=== PATIENT | female | born 1990 | race Caucasian/White ===

== ENCOUNTER 2024-08-17 19:02 | Emergency (ER) | payer BC ==
[~2024-08-17] VITALS: Ht 167.6 cm; Wt 64.8 kg
[2024-08-17 19:14] VITALS: TEMP 97.5
[2024-08-17 19:34] LABS: BASOPHILS # (AUTO) 0.1 X10'3 (0-0.2); BASOPHILS % (AUTO) 0.7 % (0-1); EOSINOPHILS # (AUTO) 0.7 X10'3 (0-0.9); EOSINOPHILS % (AUTO) 8.2 % (0-6); HEMATOCRIT 41.1 % (35.0-45.0); LYMPHOCYTES # (AUTO) 2.4 X10'3 (1.1-4.8); MEAN CORPUSCULAR HEMOGLOBIN 31.8 PG (27.0-31.0); MEAN CORPUSCULAR HGB CONC 34.1 g/dL (33.0-36.5); MEAN CORPUSCULAR VOLUME 93.2 FL (78-98); MEAN PLATELET VOLUME 8.4 FL (7.4-10.4); MONOCYTES # (AUTO) 0.8 X10'3 (0-0.9); NEUTROPHILS # (AUTO) 4.3 X10'3 (1.8-7.7); NEUTROPHILS % (AUTO) 52.1 % (42-75); PLATELET COUNT 209 X10'3 (140-440); RED BLOOD COUNT 4.41 X10'6 (4.20-5.60); RED CELL DISTRIBUTION WIDTH 13.3 % (11.5-14.5); WHITE BLOOD COUNT 8.2 X10'3 (4.5-11.0)
[2024-08-17 19:36] LABS: BILIRUBIN,URINE NEGATIVE (Neg); CLARITY,URINE SLIGHTLY CLOUDY (Clear); COLOR,URINE YELLOW (Yellow); GLUCOSE, URINE NEGATIVE (Neg); KETONES,URINE NEGATIVE (Neg); LEUKOCYTE ESTERASE ,URINE TRACE (Neg); NITRITES, URINE NEGATIVE (Neg); OCCULT BLOOD,URINE TRACE-INTACT (Neg); PROTEIN,URINE NEGATIVE (Neg); URINE HCG NEGATIVE (NEG); UROBILINOGEN,URINE 0.2 E.U/dL (0.2-1.0)
[2024-08-17 19:38] LABS: UA COLLECTION TYPE CLN CATCH MIDSTREAM
[2024-08-17 19:44] LABS: BACTERIA,URINE 3+ /HPF (Neg); SQUAMOUS EPITHELIAL CELL,UR MANY /LPF (FEW); WBC,URINE 50-100 /HPF (0-4)
[2024-08-17 19:49] LABS: ALANINE AMINOTRANSFERASE 17 U/L (12-78); ALBUMIN 3.7 G/DL (3.4-5.0); ALBUMIN/GLOBULIN RATIO 1.1 (1.1-1.5); ALKALINE PHOSPHATASE 76 IU/L (46-116); ANION GAP 6 (8-16); ASPARTATE AMINO TRANSFERASE 15 U/L (10-37); BILIRUBIN,TOTAL 0.4 MG/DL (0.1-1.0); BLOOD UREA NITROGEN 17 MG/DL (7-18); BUN/CREATININE RATIO 14.3 (10.0-20.0); CALCIUM 8.5 MG/DL (8.5-10.1); CHLORIDE 107 MMOL/L (99-107); CREATININE 1.19 MG/DL (0.40-0.90); GLUCOSE 94 MG/DL (70-104); LIPASE 45 U/L (16-77); POTASSIUM 3.9 MMOL/L (3.5-5.1); SODIUM 143 MMOL/L (135-145); TOTAL CARBON DIOXIDE 29.7 MMOL/L (24-32); TOTAL PROTEIN 7.1 G/DL (6.4-8.2); eCRCL 62 ML/MIN; eGFR 52 ML/MIN
--- NOTE | 2024-08-17 20:26 | Physician Documentation ---
History of Present Illness ~ Chief Complaint: Urinary Symptoms Stated Complaint: UTI Time Seen by MD: 19:43 Mode of Arrival: POV HPI Patient is seen today with complaints of urinary tract infection like symptoms. Patient states she was just recently treated for urinary tract infection and states that her symptoms got better for a while but have now returned and she feels a possibly never fully went away or resolve. Patient states she was treated for UTI about two months ago. Patient has no other concern or complaint of time. Patient states she has a problem with holding her urine and not staying well hydrated. She denies any current fever or flank pain. Medication Reconciliation Allergies: Coded Allergies: No Known Allergies (Unverified , 08/17/24) Review of Systems Constitutional: Denies: chills, fever, weakness Eyes: Denies: pain, blurred vision ENT: Denies: ear pain, nose pain, throat pain, mouth pain Respiratory: Denies: cough, shortness of breath Cardiovascular: Denies: chest pain, palpitations Gastrointestinal: Denies: abdominal pain, nausea, vomiting Genitourinary: Denies: burning, dysuria Female Genitalia: Denies: vaginal discharge, pelvic pain Neurological: Denies: headache, dizziness Musculoskeletal: Denies: pain, swelling Integumentary: Denies: rash, lesions Allergic/Immunologic: Denies: hives, itching Hematologic/Lymphatic: Denies: no symptoms reported Psychiatric: Denies: depression, anxiety Physical Exam Vital Signs: Temperature: 97.5, Source: Temporal, Heart Rate: 61, Respiratory Rate: 16, BP: 103/46, Pulse Oximetry: 98, Weight: 64.850 Oxygen Flow Rate: 0 Physical Exam General: Awake and Alert, no acute distress. HEENT: Conjunctiva pink, Sclera clear, Mucus Membranes moist. Neck: Supple without masses and tenderness. Resp: Unlabored. Lungs clear to auscultation bilaterally. Heart: Regular Rate and rhythm, normal S1 and S2 without murmur, rub or gallop. Abdomen: Abdomen is soft, nondistended, patient has mild discomfort in his suprapubic area without any significant tenderness in any quadrant. There was no rebound tenderness and no guarding. Patient does not have any CVA tenderness bilaterally. Extremities: No cyanosis,clubbing or edema. Skin: Warm and Dry. Progress Results/Orders Results/Orders Vital Signs 08/17/24 08/17/24 19:14 19:43 Temp 97.5 Pulse 61 Resp 16 16 B/P (MAP) 103/46 Pulse Ox 98 O2 Flow Rate 0 Laboratory Tests Test 08/17/24 19:27 08/17/24 19:32 White Blood Count 8.2 Red Blood Count 4.41 Hemoglobin 14.0 Hematocrit 41.1 Mean Corpuscular Volume 93.2 Mean Corpuscular Hemoglobin 31.8 H Mean Corpuscular Hemoglobin Concent 34.1 Red Cell Distribution Width 13.3 Platelet Count 209 Mean Platelet Volume 8.4 Neutrophils (%) (Auto) 52.1 Lymphocytes (%) (Auto) 29.0 Monocytes (%) (Auto) 10.0 Eosinophils (%) (Auto) 8.2 H Basophils (%) (Auto) 0.7 Neutrophils # (Auto) 4.3 Lymphocytes # (Auto) 2.4 Monocytes # (Auto) 0.8 Eosinophils # (Auto) 0.7 Basophils # (Auto) 0.1 CBC Comment Sodium Level 143 Potassium Level 3.9 Chloride Level 107 Carbon Dioxide Level 29.7 Anion Gap 6 L Blood Urea Nitrogen 17 Creatinine 1.19 H Estimated GFR/1.73 m2 52 BUN/Creatinine Ratio 14.3 Glucose Level 94 Calcium Level 8.5 Total Bilirubin 0.4 Aspartate Amino Transf (AST/SGOT) 15 Alanine Aminotransferase (ALT/SGPT) 17 Alkaline Phosphatase 76 Total Protein 7.1 Albumin 3.7 Globulin 3.4 Albumin/Globulin Ratio 1.1 Lipase 45 Chemistry Comments Urine Specimen Description Cln catch midstream Urine Color Yellow Urine Clarity Slightly cloudy Urine pH 6.0 Urine Specific [place] >=1.030 Urine Protein Negative Urine Glucose (UA) Negative Urine Ketones Negative Urine Occult Blood Trace-intact Urine Nitrite Negative Urine Bilirubin Negative Urine Urobilinogen 0.2 Urine Leukocyte Esterase Trace H Urine RBC 3-10 Urine WBC 50-100 H Urine Squamous Epithelial Cells Many Urine Bacteria 3+ Urine Culture Indicated Rejected for culture Volume Urine Centrifuged 10 ml Urine HCG, Qualitative Negative Urine Comment Medical Decision Making Findings Patient is seen today with complaints of urinary tract infection like symptoms. Patient states she was just recently treated for urinary tract infection and states that her symptoms got better for a while but have now returned and she feels a possibly never fully went away or resolve. Patient states she was treated for UTI about two months ago. Patient has no other concern or complaint of time. Patient states she has a problem with holding her urine and not staying well hydrated. She denies any current fever or flank pain. Patient given Rocephin injection IM 1 g in the ED tonight. Prescription of nitrofurantoin/Macrobid sent to patient's pharmacy and patient will start that tomorrow one capsule or tablet twice a day. Patient will follow up with primary care in 2-5 days if no better as needed sooner. Return to ED with any worsening , concerning or changing symptoms. Departure Disposition: 01 HOME / SELF CARE / HOMELESS Impression: Primary Impression: Acute urinary tract infection Condition: Stable Discharge Instructions: Urinary Tract Infection, Adult Additional Instructions: Patient given Rocephin injection IM 1 g in the ED tonight. Prescription of nitrofurantoin/Macrobid sent to patient's pharmacy and patient will start that tomorrow one capsule or tablet twice a day. Patient will follow up with primary care in 2-5 days if no better as needed sooner. Return to ED with any worsening , concerning or changing symptoms. Referrals: NO PRIMARY CARE PROVIDER (PCP) Prescriptions Nitrofurantoin Monohyd/M-Cryst (Macrobid 100 mg Capsule) 100 Mg Capsule 1 CAP PO Q12H for 5 Days, #10 CAP 0 Refills Prov: KIMBERLY BRADSHAW 08/17/24 Signature Scribe Signature: No scribe Attestation: No scribKIMBERLY Jensen Aug 17, 2024 20:26
[2024-08-17] MEDS ORDERED: NITR100C6 PO (20:30)
[2024-08-17] MEDS: CefTRIAXone 1000mg IM Kit (w/lidocaine diluent) IM STA (20:33)
[2024-08-17 20:41] VITALS: BP 110/48; PULSE 60; RESP 18; O2SAT 99
== END 2024-08-17 20:42 | disposition home or self-care (01) ==
LOC: ER 19:03
DX: N39.0 Urinary tract infection, site not specified (principal)
CPT/HCPCS: 36415; 80053; 81001; 81025; 83690; 85025; 96372; 99283; J0696

== ENCOUNTER 2024-09-16 20:02 | Emergency (ER) | payer BC ==
[~2024-09-16] VITALS: Ht 167.6 cm; Wt 65.4 kg
[~2024-09-16 20:02] MED LIST: NITR100C6 PO
[2024-09-16 21:17] VITALS: BP 112/62; PULSE 48; TEMP 98.4; O2SAT 98
[2024-09-16 21:40] VITALS: RESP 16
--- NOTE | 2024-09-16 21:56 | Physician Documentation ---
History of Present Illness ~ Chief Complaint: Vaginal Bleeding Stated Complaint: COMPLICATIONS Time Seen by MD: 21:14 Mode of Arrival: POV HPI This 33-year-old female took the pill yesterday and developed increased vaginal bleeding. She called the hotline for concerns over vaginal bleeding more than two pads. Instead of waiting for the hotline advice she presents to the ED. she denies any dizziness syncope shortness of breath or weakness. Says the vaginal bleeding has somewhat subsided. 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 Day of Onset: Sep 16, 2024 Medication Reconciliation Allergies: Coded Allergies: No Known Allergies (Unverified , 09/16/24) Scheduled Nitrofurantoin Monohyd/M-Cryst (Macrobid 100 mg Capsule), 1 CAP PO Q12H Review of Systems All Other Systems at this time: Reviewed and Negative ROS As stated above in the HPI, otherwise all systems are reviewed and negative. Physical Exam Vital Signs: Temperature: 98.4, Source: Oral, Heart Rate: 48, Respiratory Rate: 16, BP: 112/62, Pulse Oximetry: 98, Weight: 65.400 Oxygen Flow Rate: 0 Physical Exam General: Alert, no apparent distress. Respiratory: Lungs clear, no respiratory distress. Cardiovascular: Regular rate and rhythm, no murmurs. Gastrointestinal: Soft, nontender, nondistended. Bowels sounds present. Psychiatric: Normal mood and affect. Skin: Normal color, warm and dry. No edema, no ecchymosis. 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 09/16/24 23:04 DARNELL LANZA NP Sep 16, 2024 21:55
== END 2024-09-16 22:48 | disposition left against medical advice (07) ==
LOC: ER 20:03
DX: O46.90 Antepartum hemorrhage, unspecified, unspecified trimester (principal); Z79.899 Other long term (current) drug therapy
CPT/HCPCS: 99282

== ENCOUNTER 2024-10-25 19:48 | Emergency (ER) | payer BC ==
[~2024-10-25] VITALS: Ht 167.6 cm; Wt 63.6 kg
[2024-10-25 19:57] VITALS: BP 130/72; PULSE 62; RESP 16; TEMP 98; O2SAT 98
--- NOTE | 2024-10-25 21:47 | Physician Documentation ---
History of Present Illness ~ Chief Complaint: Mouth Pain Stated Complaint: MOUTH SORE Time Seen by MD: 20:26 HPI Patient is a 33-year-old female that presents to the emergency department for evaluation of an ulceration of her gums x1 week. Patient reports that she wears dentures and wears her dentures almost 24 hours a day and that the ulceration or lump underneath her dentures has become progressively worse over the last 3 days. Patient is concerned about oral cancer we discussed the the probability versus probability of infection at this time. Patient reports that the ulcer in his the ulceration is not particularly painful but does bleed sometimes. Medication Reconciliation Allergies: Coded Allergies: No Known Allergies (Unverified , 09/16/24) Scheduled Nitrofurantoin Monohyd/M-Cryst (Macrobid 100 mg Capsule), 1 CAP PO Q12H Review of Systems ROS As stated above in the HPI, otherwise all systems are reviewed and negative. Physical Exam Vital Signs: Temperature: 98.0, Heart Rate: 62, Respiratory Rate: 16, BP: 130/72, Pulse Oximetry: 98, Weight: 63.640 Oxygen Flow Rate: 0 Physical Exam VITALS: Reviewed and as above. GENERAL: Alert, no apparent distress. HEENT: Normocephalic, atraumatic, PERRL, EOMI, dry mucosa, erythema and small ulceration noted to the top gums above the front tooth. Dentures noted. RESPIRATORY: Lungs clear, normal breath sounds, no respiratory distress. CHEST: No accessory muscle use, no retractions CV: Regular rate, rhythm, no edema, no murmur, No: JVD GI: Soft, non-tender, bowels sounds present, no rebound, guarding, or rigidity BACK: No CVA tenderness, or swelling MUSCULOSKELETAL No deformities, no edema SKIN: Warm and dry, no rash NEURO: Oriented x4, No motor or sensory deficit PSYCH: Normal mood and affect, no agitation Progress Results/Orders Results/Orders Vital Signs 10/25/24 19:57 Temp 98.0 Pulse 62 Resp 16 B/P (MAP) 130/72 Pulse Ox 98 O2 Flow Rate 0 Medical Decision Making Findings This patient presents with initial presentation of local erythema, warmth, swelling concerning for ulceration of the gums. Mild sensitivity/pain to light touch around the erythematous area. No lymphangitic spread visible and no fluid pockets or fluctuance concerning for abscess noted. Low concern for osteomyelitis. No immune compromise, bullae, pain out of proportion, or rapid progression concerning for necrotizing fasciitis. Patient to be discharged home with Augmentin with follow up with their PMD. They will return to the emergency department if she has any worsening or recurrent symptoms or no improvement or any additional concerning symptoms i.e. increased swelling increased pain fevers nausea vomiting or any other concerning symptoms. Tooth Diff. Dx: Considerations: Include: Alveolar fracture, Aveolar osteitis, ANUG, Facial cellulitis, Periapical abscess, Periodontal abscess, Post-extractio n bleeding, Pulpitis, Trigeminal neuralgia, Tooth-avulsion, Tooth-eruption, Tooth-fracture, Tooth-subluxation, Other Throat Diff Dx: Considerations: Include: AIDS, Epiglottitis, Esophageal candidiasis, Hand foot mouth disease, Herpangina, Herpetic stomatitis, Herpes simplex, Infection mononucleosis, Immunodeficiency, Ramon's angina, Peritonsillar abscess, Peritonsillar cellulitis, Pharyngitis-diphtheria, Pharyngitis-strepococcal, Pharyngitis-viral, Thrush, URI, Other Departure Disposition: 01 HOME / SELF CARE / HOMELESS Impression: Primary Impression: Gingival ulcer Additional Impressions: Oral abscess Edema Pain Condition: Stable Discharge Instructions: Oral Ulcers, Mouth Injury, Generic Additional Instructions: This patient presents with initial presentation of local erythema, warmth, swelling concerning for ulceration of the gums. Mild sensitivity/pain to light touch around the erythematous area. No lymphangitic spread visible and no fluid pockets or fluctuance concerning for abscess noted. Low concern for osteomyelitis. No immune compromise, bullae, pain out of proportion, or rapid progression concerning for necrotizing fasciitis. Patient to be discharged home with Augmentin with follow up with their PMD. They will return to the emergency department if she has any worsening or recurrent symptoms or no improvement or any additional concerning symptoms i.e. increased swelling increased pain fevers nausea vomiting or any other concerning symptoms. Ibuprofen as needed for discomfort saltwater rinses as tolerated please try not to wear her dentures as often as you can, avoid hot or cold foods that may irritate the a tissue of her gums. Referrals: NO PRIMARY CARE PROVIDER (PCP) Prescriptions Amox Tr/Potassium Clavulanate 875/125 MG (Augmentin 875/125 MG) 875 Mg-125 Mg Tablet 1 TAB PO Q12H for 10 Days, #20 TAB Prov: JULIENNE SALEH 10/25/24 Education Educated: Patient Educated regarding: diagnosis, treatment, need for follow up Signature Scribe Signature: A Attestation: Scribed for Julienne Saleh by BROOKS Mohr . 10/25/24 21:50 JULIENNE SALEH Oct 25, 2024 21:47
[2024-10-25] MEDS ORDERED: AMOX-580 PO (21:57)
== END 2024-10-25 22:00 | disposition home or self-care (01) ==
LOC: ER 19:49
DX: K06.8 Other specified disorders of gingiva and edentulous alveolar ridge (principal); K12.2 Cellulitis and abscess of mouth
CPT/HCPCS: 99283